=== PATIENT | male | born 1960 | race Caucasian/White ===

== ENCOUNTER 2020-09-14 14:26 | Inpatient (IN) | payer BC ==
[~2020-09-14] VITALS: Ht 182.9 cm; Wt 102.1 kg
--- NOTE | ~2020-09-14 | O ---
[facility] [place] [address] OPERATIVE REPORT Name: ZANDER SAMANO Room #: 448-P [facility] IN M.R.#: [id number] Admission: 09/14/20 Attend Phys: Sanchez Mehta, Discharge: 09/17/20 Date of : 64 Report #: [id number] THIS REPORT FOR: cc: Hank Lama MD, Neal A. MD Patterson, Jonathan D. MD ~ DOC #: [id number] Sanchez Mehta MD DATE OF SERVICE: 09/14/2020 PREOPERATIVE DIAGNOSIS: Incarcerated umbilical hernia. POSTOPERATIVE DIAGNOSIS: Strangulated umbilical hernia. OPERATIONS: 1. Diagnostic laparoscopy. 2. Open umbilical hernia repair without mesh. 3. Small bowel resection with single anastomosis. SURGEON: Sanchez Mehta MD ANESTHESIA: General. ESTIMATED BLOOD LOSS: 20 mL SPECIMEN: Small bowel. DESCRIPTION OF PROCEDURE: After informed consent was obtained, the patient was brought to the operating room and placed supine. SCDs were placed and working. Preoperative antibiotics were administered. General anesthesia was induced. The abdomen was prepped and draped in the usual sterile fashion. A 5 mm incision was made in the left upper quadrant. A 5 mm trocar was placed under direct vision. Pneumoperitoneum was established. A left-sided 8 mm trocar was placed. A diagnostic laparoscopy was performed. There was an incarcerated hernia at the umbilicus consistent with the CT findings. I was able to manually reduce this by pressing on the hernia. The small bowel reduced. It was very evident that the small bowel was ischemic and not viable. Pictures were taken to document this. I then removed the laparoscope. A periumbilical incision measuring approximately 6 cm was made around the umbilicus. Fascia was incised including the small hernia defect. I was able to exteriorize the small bowel that was affected. It was an approximately 5 cm segment. Therefore, it was stapled proximally and distal to this with a JORDON blue load stapler. The mesentery was ligated using 3-0 silk ties. The specimen was then removed. A obxy-gc-heal functional end-to-end anastomosis of the small bowel was undertaken. Small bowel was brought into apposition in [id number]. Enterotomies were made on each side of the bowel. The stapler was then inserted [address] [address] OPERATIVE REPORT Name: SELWYNZANDER Elam Room #: 448-P [facility] IN .R.#: [id number] Admission: 09/14/20 Attend Phys: Sanchez Mehta, Discharge: 09/17/20 Date of : 64 Report #: [id number] and fired. The common enteroenterostomy was stapled with a JORDON blue load stapler as well. The areas where the staple crossed were imbricated with a 3-0 silk suture. Four sutures were placed. The mesentery was closed with a single 3-0 silk suture as well. The anastomosis was widely patent. It was then placed back into the abdomen. Fascia was then closed with a running 0 PDS. The skin was closed with 4-0 Monocryl. Incisions were dressed with Steri-Strips and sterile gauze. Sterile dressings were applied. COMPLICATIONS: None. DISPOSITION: The patient was taken to recovery in satisfactory condition. Sanchez Mehta MD JDP/MUK By: 1946 03 Sanchez Mehta MD /nt
[2020-09-14 14:29] VITALS: BP 146/64
[2020-09-14] MEDS ORDERED: ADVIL100 M3 PO (14:59)
[2020-09-14 15:34] LABS: ABSOLUTE NEUTROPHILS 8.1 thou/uL (1.4-8.2); BASOPHILS 0.2 % (0.0-2.0); EOSINOPHILS 0.3 % (0.0-3.0); HEMATOCRIT 44.3 % (42.0-52.0); HEMOGLOBIN 15.4 gm/dL (14.0-18.0); LYMPHOCYTES 5.3 % (24.0-44.0); MCH 32.4 pg (26.0-34.0); MCHC 34.7 g/dL (28.0-37.0); MCV 93.4 fL (80.0-100.0); MONOCYTES 3.3 % (1.0-8.0); PLATELET COUNT 207 thou/uL (150-400); POLYS 90.9 % (36.0-66.0); RBC 4.75 mil/uL (4.50-6.00); RDW 12.6 % (10.5-14.5); WBC 8.9 thou/uL (4.0-11.0)
[2020-09-14 15:39] LABS: CALCIUM 9.2 mg/dL (8.5-10.1); CREATININE 1.1 mg/dL (0.7-1.3); POTASSIUM 4.4 mmol/L (3.5-5.1)
[2020-09-14 15:45] LABS: ALBUMIN 3.9 g/dL (3.4-5.0); TOTAL BILIRUBIN 0.6 mg/dL (0.2-1.0); TOTAL PROTEIN 7.3 g/dL (6.4-8.2)
[2020-09-14 17:25] VITALS: BP 149/55
[2020-09-14 18:20] VITALS: BP 149/55
--- NOTE | 2020-09-14 18:35 | NUR ---
PT ADMITTED TO UNIT AT THIS TIME. NG TUBE TO RIGHT NOSTRIL. HE IS ALERT ORIENTED X4. DENIES PAIN JUST DISCOMFORT FROM NG TUBE. FAMILY AT BEDSIDE.
[2020-09-14 22:04] VITALS: BP 118/64
[2020-09-15] VITALS (7 sets, daily range): BP systolic 105–123; BP diastolic 52–63
[2020-09-15 00:10] LABS: URINE BILIRUBIN NEGATIVE (Negative); URINE BLOOD NEGATIVE (Negative); URINE CLARITY CLEAR; URINE COLOR YELLOW; URINE GLUCOSE-RANDOM* NEGATIVE (Negative); URINE KETONES 1+ (Negative); URINE LEUKOCYTES-REFLEX NEGATIVE (Negative); URINE NITRITE-REFLEX NEGATIVE (Negative); URINE PROTEIN (DIPSTICK) NEGATIVE (Negative); URINE UROBILINOGEN 0.2 E.U./dl (0.2-1.0)
--- NOTE | 2020-09-15 05:23 | NUR ---
PT ARRIVED ON UNIT FROM RECOVERY AT 2200 POST HERNIA REPAIR AND BOWEL RESECTION. 3 LAP SITES INTACT. NG IN PLACE TO LIS. VOIDING PER URINAL. DENIES NAUSEA. MORPHINE PROVIDING PAIN RELIEF. RESTING COMFORTABLY. NO NEEDS VOICED. CALL LIGHT WITHIN REACH. FREQUENT OBSERVATION.
[2020-09-15 05:56] LABS: CALCIUM 8.4 mg/dL (8.5-10.1); CREATININE 1.1 mg/dL (0.7-1.3); POTASSIUM 5.3 mmol/L (3.5-5.1)
--- NOTE | 2020-09-15 07:03 | EKG ---
[address] [employer] [place] [address] ELECTROCARDIOGRAM REPORT Name: ZANDER SAMANO Room #: 448-P ADM IN M.R.#: [id number] Admission: 09/14/20 Attend Phys: Sanchez Mehta, Discharge: Date of : 64 Report #: [id number] [facility] ED Test Date: 2020-09-14 Test Time: 16:05:30 Pat Name: ZANDER SAMANO Department: Room: [facility] Gender: M Council Member: jareth : 1960 Requested By: Lee Banda Order Number: [id number] MD: Ronal Barros Measurements Intervals [place] Rate: 57 P: 36 VA: 206 QRS: -16 QRSD: 108 T: 50 QT: 416 QTc: 405 Interpretive Statements Sinus rhythm Borderline prolonged VA interval Incomplete RBBB and LAFB Abnormal R-wave progression, early transition No previous ECG available for comparison Electronically Signed On 09-15-2020 7:03:21 CDT by Ronal Barros [email or web address] <ELECTRONICALLY SIGNED> By: Ronal Barros MD, [facility] 09/15/20 0703 D: [id number] Ronal Barros MD, FACC /EPI
--- NOTE | 2020-09-15 13:24 | NUR ---
ASSESSMENT: CM REVIEWED CHART AND MET WITH PATIENT AND HIS . PT WAS ADMITTED WITH SBO , INCARCERATED HERNIA. PT LIVES IN A HOUSE WITH HIS . PT REPORTS THAT HE IS FULLY INDEPENDENT WITH ADLS AND AMBULATION. PT REPORTS NO HX OF HH OR SNF IN THE PAST. PT HAS NO DME OR THE NEED FOR IT. CM DISCUSSED ROLE. PT DOES NOT ANTICIPATE HAVING ANY NEEDS FROM CM. PT HAD SURGERY TODAY FOR HERNIA AND SMALL BOWEL RESECTION. CM WILL CONTINUE TO FOLLOW TO ASSIST NEEDED.
[2020-09-15 14:18] LABS: CALCIUM 8.4 mg/dL (8.5-10.1)
[2020-09-15 14:23] LABS: POTASSIUM 4.3 mmol/L (3.5-5.1)
--- NOTE | 2020-09-15 14:29 | NUR ---
ASSUMED PT CARE THIS AM. PT HAS IV SITE ON L AC 20 GAUGE. PT IS UP AD BELLA AND HAS BATHROOM PRIVILEDGE. PT C/O OF PAIN AND GIVEN PAIN MEDICATION. REMOVED NG TUBE PER VERBAL ORDER THIS AFTERNOON. PT AT THE BEDSIDE, BED ON THE LOWEST POSITION, SIDE RAILS UP, CALL LIGHT WITHIN REACH. WILL CONTINUE TO MONITOR PT. FOLLOW POC.
--- NOTE | 2020-09-16 02:26 | NUR ---
ASSUMED PT CARE AT 1900.PT'S AT BEDSIDE AT SHIFT CHANGE.3 LAP SITES COVERED WITH STERI STRIPS NOTED.DRAINGE NOTED TO THE DRSG TO HIS BELLY BUTTON.PT UP WITH SBA TO THE TOILET.ABD PAIN MANAGED WITH PRN MED.CALL LIGHT WITHIN REACH.
[2020-09-16 04:06] VITALS: BP 139/67
[2020-09-16 04:19] LABS: HEMATOCRIT 39.6 % (42.0-52.0); HEMOGLOBIN 13.5 gm/dL (14.0-18.0); MCH 31.7 pg (26.0-34.0); MCHC 34.2 g/dL (28.0-37.0); MCV 92.9 fL (80.0-100.0); RBC 4.26 mil/uL (4.50-6.00); RDW 12.5 % (10.5-14.5); WBC 8.5 thou/uL (4.0-11.0)
[2020-09-16 04:20] LABS: ALBUMIN 3.1 g/dL (3.4-5.0); CALCIUM 8.2 mg/dL (8.5-10.1); PHOSPHORUS 2.2 mg/dL (2.6-4.7)
[2020-09-16 08:44] VITALS: BP 136/78
--- NOTE | 2020-09-16 11:51 | NUR ---
Assumed pt care at 7am.Pt in bed resting.Assisted to bathroom to void. Assessment completed.vss.Pt c/o abdominal pain rated 3/10. Iv pain med given as ordered with relief.Dr Mccarty here,order noted.Pt will be having full liq for lunch.Pt reported passisg gas.R n encouraged pt to ambulate in hallways today. at bs assisting with care.Will continue to monitor.
--- NOTE | 2020-09-16 14:36 | NUR ---
ON-GOING ASSESSMENT: CM REVIEWED CHART. PT CONTINUES TO PROGRESS. PT SHOULD HAVE NO NEEDS AT TIME OF DISCHARGE. CM WILL CONTINUE TO FOLLOW.
[2020-09-16 15:46] VITALS: BP 125/66
--- NOTE | 2020-09-16 18:06 | PATH ---
[facility] [address] [place] [address] PATHOLOGY RPT PROCEDURE Name: WADE SAMANO Room #: 448-P ADM IN M.R.#: [id number] Admission: 09/14/20 Date of : 64 Discharge: Report #: [id number] Path Case #: [id number] [facility] Accession Number: [id number] . 01 Material submitted: . small bowel - SMALL BOWEL . 01 Clinical history: . LAPAROSCOPIC HERNIA UMBILICAL SMALL BOWEL RESECTION INCARCERATED, STRANGULATED UMBILICAL HERNIA . 02 Diagnosis: Small bowel, resection: - Markedly congested and ischemic small bowel. - One margin viable. - Second margin showing partial congestion and ischemia. - Additional segment of small bowel showing viable unremarkable mucosa. - Fragments of reactive fibroadipose tissue. - Negative for malignancy. . (IUV:mml; 09/16/2020) QLM 09/16/2020 1404 Local . 02 Electronically signed: . Gladys Van MD, Pathologist NPI- [id number] . 01 Gross description: . The specimen is received in formalin, labeled "Wade Samano, small bowel" and consist of a specimen received as a 2 x 1 x 0.6 cm unremarkable saclike fragment of fibromembranous tissue, 1 fragment of 2.5 x 1 x 0.2 cm unremarkable bowel and an unoriented segment of small bowel. The small bowel measures 7 cm in length and up to 3 cm in diameter with focally congested serosal surfaces and without any adhesions in the mesentery. The small bowel is grossly viable within 1 cm of either end margin. The mucosa of the small bowel is diffusely congested with the exception of the previously described viable areas. Perforations are not identified. The wall thickness ranges from 0.1 cm at the diffusely congested red-purple bowel up to 0.4 cm at the viable ends. Matchbook [employer] sections are submitted in 4 cassettes A1 fibromembranous tissue and 2.5 cm unremarkable bowel A2 perpendicular sections of small bowel with black ink A3-A4 relationship of diffusely congested to viable small bowel ([facility]; 09/15/2020) LUCILA/LUCILA 09/15/2020 [address] [place] [address] PATHOLOGY RPT PROCEDURE Name: WADE SAMANO Room #: 448-P ADM IN M.R.#: [id number] Admission: 09/14/20 Date of : 64 Discharge: Report #: [id number] Path Case #: [id number] . 02 Pathologist provided ICD-10: K42.0 . 02 CPT . 950922 Specimen Comment: A courtesy copy of this report has been sent to [phone], [phone] Specimen Comment: [id number] Specimen Comment: Report sent to / DR NAJERA Performed at: [address] [facility], [place] [id number] MD Jonas Ramires MD Phone: [phone] Performed at: [address] [facility] [id number] MD Gladys Van MD Phone: [phone]
[2020-09-16 20:42] VITALS: BP 129/70
--- NOTE | 2020-09-16 23:35 | NUR ---
PT WALKED AROUND THE HALLWAYS AT THE START OF SHIFT. PT REPORTS PASSING FLATUS. PT TOLERATING CLR LIQUID DIET. C/O PAIN AT AROUND 4/10. GIVEN NORCO FOR PAIN BUT LATER ASKED FOR MORPHINE BECAUSE HE SAID THE NORCO MADE HIM FEEL 'NERVOUS" AND COULD NOT SLEEP. WILL SPEEK WITH DOC IN THE AM ABOUT SWITICHING. PT WOULD LIKE MORPHINE FOR THE REST OF THE NOC IF NEED BE. EDUACTION PROVIDED BAOUT IV PAIN MEDS. I OFFERED TO GET HIM SOMETHING FOR SLEEP BUT HE REFUSED AND PREFERRED TO MAKE DO WITH THE MORPHINE. PT VOIDING PER URINAL. LAP SITES X 3-THE ONE AROUND HIS UMBILICUS HAS THE GAUZE, WITH DRY DRAINAGE.NO FURTHER CONCERNS AT THIS TIME.
[2020-09-17 08:22] VITALS: BP 135/68
--- NOTE | 2020-09-17 09:51 | NUR ---
ASSUMED PT CARE THIS AM. PT IS ALERT & ORIENTED X4. PT HAS IV SITE ON L AC. PT TOLERATED FULL LIQUID DIET THIS AM. PT RATED PAIN 3/10 AND GIVEN NEW ORDER OF PAIN MEDICATION PER REQUEST. PT HAS N0 BM BUT STATED THAT HE HAS BEEN PASSING GAS. PT AT THE BEDSIDE. PT WALK IN THE HALLWAY WITH . PT ON THE BED, BED ON THE LOWEST POSITION, SIDE RAILS UP, CALL LIGHT WITHIN REACH. WILL CONTINUE TO MONITOR PT. FOLLOW POC.
[2020-09-17] MEDS ORDERED: APAP W/CODEINE1 TA2 PO (12:07)
[2020-09-17 13:56] VITALS: BP 135/68
--- NOTE | 2020-09-17 14:01 | NUR ---
on-going assessment: CM REVIEWED CHART AND SPOKE WITH BEDSIDE RN. PT IS POSSIBLE DISCHARGE TODAY PENDING BM. PT WILL HAVE NO NEEDS AT THE TIME OF DISCHARGE. CM WILL CONTINUE TO FOLLOW.
== END 2020-09-17 15:00 | disposition home or self-care (01) | DRG 331 ==
LOC: ER 14:26 → EROBS 16:39 → 4S 16:39
PROVIDERS: Emergency Medicine; Surgery; ADMIT Surgery; ATTEND Surgery
PROC: 0DB80ZZ Excision of Small Intestine, Open Approach (ICD-10-PCS; principal; 2020-09-14)
PROC: 0WJF4ZZ Inspection of Abdominal Wall, Percutaneous Endoscopic Approach (ICD-10-PCS; principal; 2020-09-14)
PROC: 0D9670Z Drainage of Stomach with Drainage Device, Via Natural or Artificial Opening (ICD-10-PCS; 2020-09-15)
DX: K42.0 Umbilical hernia with obstruction, without gangrene (principal); Z20.822 Contact with and (suspected) exposure to COVID-19; E87.5 Hyperkalemia; Z79.899 Other long term (current) drug therapy
CPT/HCPCS: 10195; 50010; 50101; 50386; 50555; 51489; 51708; 51712; 52265; 52266; 54022; 56525; 56528; 57092; 58574; 62110; 62900; 70005

== ENCOUNTER → 2021-07-15 | Outpatient (CLI) | payer OTHER ==
[~2021-07-15] MED LIST: ADVIL100 M3 PO; APAP W/CODEINE1 TA2 PO
== END ==
LOC: CAT 13:39
PROVIDERS: ATTEND Family Medicine
DX: Z13.6 Encounter for screening for cardiovascular disorders (principal); I25.10 Atherosclerotic heart disease of native coronary artery without angina pectoris; E78.00 Pure hypercholesterolemia, unspecified